=== PATIENT | female | born 1970 | race Caucasian/White ===

== ENCOUNTER 2018-03-19 06:52 | Day surgery (SDC) | payer OTHER ==
[~2018-03-19 06:52] MED LIST: [UNRECOGNIZED DRUG - OTHER]
[2018-03-19] MEDS ORDERED: AFRIN15 ML NASAL (16:02)
[2018-03-19] MEDS ORDERED: ULTRACET PO (16:02)
[2018-03-19] MEDS ORDERED: AMOX-CLAV 875-1 EACH PO (16:02)
== END 2018-03-19 19:00 | disposition home or self-care (01) ==
LOC: CIR.AMB 06:52
DX: J32.0 Chronic maxillary sinusitis (principal); J32.4 Chronic pansinusitis